=== PATIENT | female | born 1965 | race Caucasian/White ===

== ENCOUNTER 2017-09-17 18:13 | Emergency (ER) | payer OTHER ==
[2017-09-17] MEDS ORDERED: ACETAMINOPHEN 325 MG TABLET (FP) PO ONE (18:25)
[2017-09-17 18:26] VITALS: BP 154/90; PULSE 126; TEMP 101.6; BMI 30.2
[2017-09-17] MEDS ORDERED: predniSONE 20 MG TABLET (UD) PO ONE (18:26)
--- NOTE | 2017-09-17 18:27 | PDOC ---
Rapid Medical Evaluation Time Seen by Provider: 09/17/17 18:21 Medical Evaluation: I have performed a brief in-person evaluation of this patient. The patient presents with a chief complaint of: chest congestion, cough, body aches, SOB since yesterday Pertinent physical exam findings: non toxic but ill appearing, febrile, diffuse expiratory wheezing across all jacobs. Patient had the flu shot this year I have ordered the following: labs, duoneb, prednisone, tylenol, CXR, EKG The patient will proceed to the ED for further evaluation.
[2017-09-17] MEDS: ALBUTEROL SO4 2.5/IPRATROPIUM 0.5 INH SOL 3 ML VIAL.NEB. NEB SCH ×4 (18:30→19:15)
[2017-09-17] MEDS ORDERED: predniSONE 20 MG TABLET (UD) ONE (18:40)
[2017-09-17] MEDS ORDERED: ACETAMINOPHEN 325 MG TABLET (FP) ONE (18:40)
[2017-09-17] MEDS ORDERED: ALBUTEROL SO4 2.5/IPRATROPIUM 0.5 INH SOL 3 ML VIAL.NEB. NEB ONE (18:40)
[2017-09-17 18:58] LABS: BASO % 0.6 % (0-2.0); EOS % 1.2 % (0-4.5); HEMATOCRIT 40.7 % (32.4-45.2); HEMOGLOBIN 13.2 GM/dL (10.7-15.3); LYMPH % 14.9 % (8-40); MCH 27.1 pg (25.7-33.7); MCHC 32.5 g/dl (32.0-36.0); MEAN CELL VOLUME 83.5 fl (80-96); MEAN PLT VOLUME 7.9 fl (7.5-11.1); NEUT % 73.3 % (42.8-82.8); PLATELET COUNT 266 K/MM3 (134-434); RBC 4.87 M/mm3 (3.60-5.2); RDW 14.3 % (11.6-15.6); WHITE BLOOD COUNT 6.5 K/mm3 (4.0-10.0)
[2017-09-17 19:30] LABS: ANION GAP 8 (8-16); BILIRUBIN,TOTAL 0.4 mg/dL (0.2-1.0); BLOOD UREA NITROGEN 9 mg/dL (7-18); CALCIUM 8.6 mg/dL (8.5-10.1); CHLORIDE 104 mmol/L (98-107); CO2 27 mmol/L (21-32); CREATININE 0.6 mg/dL (0.55-1.02); GLUCOSE,RANDOM 117 mg/dL (74-106); SGPT/ALT 30 U/L (12-78); SODIUM 139 mmol/L (136-145); TOT PROT 7.8 g/dl (6.4-8.2)
[2017-09-17 19:33] LABS: ALK PHOS 119 U/L (45-117)
[2017-09-17 19:36] LABS: POTASSIUM 4.4 mmol/L (3.5-5.1); SGOT/AST 16 U/L (15-37)
--- NOTE | 2017-09-17 19:46 | PDOC ---
History of Present Illness - General History Source: Patient Exam Limitations: No Limitations - History of Present Illness Initial Comments: 09/17/17 20:54 The patient is a 52 year old female with a significant PMH of diabetes, asthma, and hyperlipidemia who presents to the emergency department with shortness of breath and chest tightness beginning approximately yesterday. The patient also notes she has had poor PO intake today and feels a sharp pain in her ears bilaterally. The patients temp. was T. max 101.6F at triage. The patient also notes she just recently took a 13 hour bus trip from [place] over the past 2 days but denies leg swelling. The patient denies headache and dizziness. Denies chills, nausea, vomit, diarrhea and constipation. Denies dysuria, frequency, urgency and hematuria. Allergies: Methylprednisolone Past surgical history: None reported. Social history: Current everyday smoker (3 cigs/day). No reported alcohol or drug use. PCP: Dr. Gracie Stephen <Man Chavez - Last Filed: 09/17/17 22:57> <Michelle Mena - Last Filed: 09/18/17 03:52> - General Chief Complaint: Shortness of Breath Stated Complaint: CHEST PAIN Time Seen by Provider: 09/17/17 18:21 Past History <Man Chavez - Last Filed: 09/17/17 22:57> - Suicide/Smoking/Psychosocial Hx Smoking History: Current every day smoker Have you smoked in the past 12 months: Yes Number of Cigarettes Smoked Daily: 3 Information on smoking cessation initiated: No <Michelle Mena - Last Filed: 09/18/17 03:52> - Past Medical History Allergies/Adverse Reactions: Allergies Allergy/AdvReac Type Severity Reaction Status Date / Time methylprednisolone Allergy Swelling Verified 09/17/17 18:22 [From Solu-Medrol] Home Medications: Ambulatory Orders Metformin HCl [Glucophage] 1,000 mg PO BID 09/17/17 Oseltamivir Phosphate [Tamiflu -] 75 mg PO BID #10 capsule 09/17/17 Review of Systems - Review of Systems Able to Perform ROS?: Yes Comments:: 09/17/17 20:54 GENERAL/CONSTITUTIONAL: (+) Decreased appetite. (+) Fever. No chills. No weakness. HEAD, EYES, EARS, NOSE AND THROAT: (+) Bilateral sharp ear pain. No change in vision. No sore throat. CARDIOVASCULAR: (+) Shortness of breath. (+) Chest tightness. RESPIRATORY: No cough, wheezing, or hemoptysis. GASTROINTESTINAL: No nausea, vomiting, diarrhea or constipation. GENITOURINARY: No dysuria, frequency, or change in urination. MUSCULOSKELETAL: No joint or muscle swelling or pain. No neck or back pain. SKIN: No rash NEUROLOGIC: No headache, vertigo, loss of consciousness, or change in strength/ sensation. ENDOCRINE: No increased thirst. No abnormal weight change. HEMATOLOGIC/LYMPHATIC: No anemia, easy bleeding, or history of blood clots. ALLERGIC/IMMUNOLOGIC: No hives or skin allergy. <Man Chavez - Last Filed: 09/17/17 22:57> *Physical Exam - Vital Signs Last Vital Signs Temp Pulse Resp BP Pulse Ox 101.6 F H 126 H 21 154/90 95 09/17/17 18:22 09/17/17 18:22 09/17/17 18:22 09/17/17 18:22 09/17/17 18:22 - Physical Exam Comments: 09/17/17 20:55 GENERAL: Awake, alert, and fully oriented, in no acute distress HEAD: No signs of trauma EYES: PERRLA, EOMI, sclera anicteric, conjunctiva clear ENT: Auricles normal inspection, hearing grossly normal, nares patent, oropharynx clear without exudates. Moist mucosa NECK: Normal ROM, supple, no lymphadenopathy, JVD, or masses LUNGS: (+) Wheezing in left base. No crackles. HEART: Regular rate and rhythm, normal S1 and S2, no murmurs, rubs or gallops ABDOMEN: Soft, nontender, normoactive bowel sounds. No guarding, no rebound. No masses EXTREMITIES: Normal range of motion, no edema. No clubbing or cyanosis. No cords, erythema, or tenderness NEUROLOGICAL: Cranial nerves II through XII grossly intact. Normal speech, normal gait SKIN: Warm, Dry, normal turgor, no rashes or lesions noted. <Man Chavez - Last Filed: 09/17/17 22:57> - Vital Signs Last Vital Signs Temp Pulse Resp BP Pulse Ox 101.6 F H 126 H 21 154/90 95 09/17/17 18:22 09/17/17 18:22 09/17/17 18:22 09/17/17 18:22 09/17/17 18:22 <Michelle Mena - Last Filed: 09/18/17 03:52> ED Treatment Course - LABORATORY CBC & Chemistry Diagram: 09/17/17 18:38 09/17/17 18:38 - ADDITIONAL ORDERS Additional order review: Laboratory Results 09/17/17 18:38 Sodium 139 Potassium 4.4 Chloride 104 Carbon Dioxide 27 Anion Gap 8 BUN 9 Creatinine 0.6 Creat Clearance w eGFR > 60 Random Glucose 117 H Calcium 8.6 Total Bilirubin 0.4 AST 16 ALT 30 Alkaline Phosphatase 119 H Creatine Kinase 106 Troponin I < 0.02 Total Protein 7.8 Albumin 4.0 09/17/17 18:38 RBC 4.87 MCV 83.5 MCHC 32.5 RDW 14.3 MPV 7.9 Neutrophils % 73.3 Lymphocytes % 14.9 Monocytes % 10.0 Eosinophils % 1.2 Basophils % 0.6 - Medications Given in the ED: ED Medications Discontinued Medications Generic Name Dose Route Start Last Admin Trade Name Freq PRN Reason Stop Dose Admin Acetaminophen 975 mg 09/17/17 18:25 09/17/17 18:57 Tylenol - PO 09/17/17 18:26 975 mg ONCE ONE Administration Albuterol/Ipratropium 1 amp 09/17/17 18:30 09/17/17 19:00 Duoneb - NEB 09/17/17 19:16 1 amp Q15M MARIA M Administration Prednisone 60 mg 09/17/17 18:26 09/17/17 18:57 Deltasone - PO 09/17/17 18:27 60 mg ONCE ONE Administration <Man Chavez - Last Filed: 09/17/17 22:57> - LABORATORY CBC & Chemistry Diagram: 09/17/17 18:38 09/17/17 18:38 - ADDITIONAL ORDERS Additional order review: Laboratory Results 09/17/17 18:38 Sodium 139 Potassium 4.4 Chloride 104 Carbon Dioxide 27 Anion Gap 8 BUN 9 Creatinine 0.6 Creat Clearance w eGFR > 60 Random Glucose 117 H Calcium 8.6 Total Bilirubin 0.4 AST 16 ALT 30 Alkaline Phosphatase 119 H Creatine Kinase 106 Troponin I < 0.02 Total Protein 7.8 Albumin 4.0 09/17/17 18:38 RBC 4.87 MCV 83.5 MCHC 32.5 RDW 14.3 MPV 7.9 Neutrophils % 73.3 Lymphocytes % 14.9 Monocytes % 10.0 Eosinophils % 1.2 Basophils % 0.6 - Medications Given in the ED: ED Medications Discontinued Medications Generic Name Dose Route Start Last Admin Trade Name Alexandro PRN Reason Stop Dose Admin Acetaminophen 975 mg 09/17/17 18:25 09/17/17 18:57 Tylenol - PO 09/17/17 18:26 975 mg ONCE ONE Administration Albuterol/Ipratropium 1 amp 09/17/17 18:30 09/17/17 19:00 Duoneb - NEB 09/17/17 19:16 1 amp Q15M MARIA M Administration Prednisone 60 mg 09/17/17 18:26 09/17/17 18:57 Deltasone - PO 09/17/17 18:27 60 mg ONCE ONE Administration <Michelle Mena - Last Filed: 09/18/17 03:52> Medical Decision Making - Medical Decision Making 09/17/17 20:16 Pt comes with fever and cough and unable to eat all day because she was feeling ill. In the ER she ate a bag of peanuts and she is now eating a dinner tray of food. 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 Pt fears that she picked something up in the hospital while she was visiting. Pt has no other complaints. SHe has a hx of asthma and DM and high cholesterol. Labs are normal. Pt is burning with fever she just got some oral tylenol that was ordered upon entering ER. CXR pending. I will treat with IV toradol for aches and with normal saline as she is tachycardic and dehydrated. 09/17/17 23:37 Patient Name: DAMION DE LA CRUZ THIS IS A PRELIMINARY REPORT FROM [facility] IMAGES: 3 EXAM DATE AND TIME: 2017-09-17 21:44:25 EXAM: XR Chest, 2 Views CLINICAL HISTORY: Rule out pneumonia. TECHNIQUE: Frontal and lateral views of the chest. COMPARISON: No relevant prior studies available. FINDINGS: LUNGS: The lungs demonstrate NO consolidations. PLEURAL SPACE: No pneumothorax. HEART: NO acute changes are demonstrated. No cardiomegaly. MEDIASTINUM: NO acute changes are demonstrated. BONES/JOINTS: There is NO evidence of acute bony changes. IMPRESSION: There is NO evidence of acute abnormalities. CPT: [address] . Chest x-ray, 2 view study , frontal and lateral. THIS DOCUMENT HAS BEEN ELECTRONICALLY SIGNED 09/18/17 03:49 Pt's pulsox in the ER is 95-96%. She is ambulating about the ER and she has no SOB She states that she wants to go home. SHe will be treated with tamflu for influenza; we cannot check for the rapid flu test as we have no reagent to conduct the test. However, clinically pt has flu so she will be empirically treated. Incidentally, pt tells me that she drove to [facility] 2 day ago and returned today. She was on a bus for over 10 hrs down and over 10 hrs up. She has no calf swelling and she has no sign of DVT/PE; pt has been advised of PE however and she knows to return of she feels worse. <Michelle Mena - Last Filed: 09/18/17 03:52> *DC/Admit/Observation/Transfer - Attestations Scribe Attestion: 09/17/17 20:55 Documentation prepared by Man Chavez, acting as medical sonographer for Michelle Mena MD. <Man Chavez - Last Filed: 09/17/17 22:57> - Discharge Dispostion Admit: No <Michelle Mena - Last Filed: 09/18/17 03:52> Diagnosis at time of Disposition: Influenza - Discharge Dispostion Disposition: HOME Condition at time of disposition: Improved - Prescriptions Prescriptions: Oseltamivir Phosphate [Tamiflu -] 75 mg PO BID #10 capsule - Referrals Referrals: Gracie Stephen [Primary Care Provider] - - Patient Instructions Printed Discharge Instructions: Influenza - Post Discharge Activity Forms/Work/School Notes: Back to Work
[2017-09-17] MEDS ORDERED: KETOROLAC TROMETHAMINE 30 MG/1 ML VIAL IVPUSH ONE (20:11)
[2017-09-17] MEDS ORDERED: SODIUM CHLORIDE 0.9% 500 ML INFUS.BAG IV ONE (20:15)
[2017-09-17] MEDS ORDERED: KETOROLAC TROMETHAMINE 30 MG/1 ML VIAL ONE (20:21)
[2017-09-17] MEDS ORDERED: OSELTAMIVIR PHOSPHATE 75 MG CAPSULE ONE (20:21)
[2017-09-17] MEDS ORDERED: OSELTAMIVIR PHOSPHATE 75 MG CAPSULE PO ONE (20:30)
--- NOTE | 2017-09-19 11:10 | EKG ---
Test Reason : Blood Pressure : / mmHG Vent. Rate : 114 BPM Atrial Rate : 114 BPM P-R Int : 142 ms QRS Dur : 080 ms QT Int : 306 ms P-R-T Axes : 072 061 039 degrees QTc Int : 421 ms SINUS TACHYCARDIA POSSIBLE LEFT ATRIAL ENLARGEMENT BORDERLINE ECG NO PREVIOUS ECGS AVAILABLE Confirmed by NAHUM RALPH MD ([id number]) on 09/19/2017 11:09:47 AM Referred By: Confirmed By:NAHUM RALPH MD
== END 2017-09-17 23:41 | disposition home or self-care (01) ==
LOC: JER 18:13
PROC: 3E033NZ Introduction of Analgesics, Hypnotics, Sedatives into Peripheral Vein, Percutaneous Approach (ICD-10-PCS; principal; 2017-09-17)
PROC: 3E0F7GC Introduction of Other Therapeutic Substance into Respiratory Tract, Via Natural or Artificial Opening (ICD-10-PCS; 2017-09-17)
DX: J11.1 Influenza due to unidentified influenza virus with other respiratory manifestations (principal)
CPT/HCPCS: 36415; 71046-TC-FY; 80053; 82550; 84484; 85025; 87040; 93005; 93010; 94640; 96374; 99283-25

== ENCOUNTER 2017-09-28 11:09 | Emergency (ER) | payer OTHER ==
[2017-09-28 11:14] VITALS: BP 124/73; PULSE 87; TEMP 97.7; BMI 30.2
[2017-09-28] MEDS ORDERED: ALBUTEROL SO4 2.5/IPRATROPIUM 0.5 INH SOL 3 ML VIAL.NEB. NEB ONE ×2 (12:13→12:28)
[2017-09-28] MEDS ORDERED: IBUPROFEN 400 MG TABLET (FP) PO ONE ×2 (12:13→12:27)
--- NOTE | 2017-09-28 12:13 | PDOC ---
History of Present Illness - General Chief Complaint: Cold Symptoms Stated Complaint: REVISIT Time Seen by Provider: 09/28/17 11:42 Past History - Past Medical History Allergies/Adverse Reactions: Allergies Allergy/AdvReac Type Severity Reaction Status Date / Time methylprednisolone Allergy Swelling Verified 09/28/17 11:10 [From Solu-Medrol] Home Medications: Ambulatory Orders Metformin HCl [Glucophage] 1,000 mg PO BID 09/17/17 Oseltamivir Phosphate [Tamiflu -] 75 mg PO BID #10 capsule 09/17/17 Guaifenesin AC [Robitussin AC] 10 ml PO HS #100 ud MDD 1 09/28/17 predniSONE [Deltasone -] 40 mg PO DAILY #10 tablet 09/28/17 Asthma: Yes COPD: No Diabetes: Yes Hypercholesterolemia: Yes - Suicide/Smoking/Psychosocial Hx Smoking History: Current every day smoker Have you smoked in the past 12 months: Yes Number of Cigarettes Smoked Daily: 5 Information on smoking cessation initiated: Yes 'Breaking Loose' booklet given: 09/28/17 Hx Alcohol Use: No Drug/Substance Use Hx: No Substance Use Type: None *Physical Exam - Vital Signs Last Vital Signs Temp Pulse Resp BP Pulse Ox 97.7 F 87 18 124/73 95 09/28/17 11:11 09/28/17 11:11 09/28/17 11:11 09/28/17 11:11 09/28/17 11:11 *DC/Admit/Observation/Transfer Diagnosis at time of Disposition: Cough - Discharge Dispostion Disposition: HOME Condition at time of disposition: Stable Admit: No - Referrals Referrals: Gracie Stephen [Nurse Practitioner] - - Patient Instructions Printed Discharge Instructions: DI for Cough -- Adult Additional Instructions: Her cough is most likely a result of the flu you have past week. Your chest x- ray was negative for pneumonia. Please take the prednisone daily for the next 5 days. Take your albuterol inhaler every 4 hours. You were also prescribed Robitussin before meals. Please take this medication at night for the cough. Do not drive after taking this medication as it may make you sleepy. Please follow up with your primary care provider this week. Return to the emergency department if you have worsening cough, fevers, difficulty breathing, lightheadedness, or any changes in your symptoms. - Post Discharge Activity Forms/Work/School Notes: Back to Work
[2017-09-28] MEDS ORDERED: guaiFENesin 200 MG/10 ML 10 ML UNIT-DOSE CUPS PO ONE (12:50)
[2017-09-28] MEDS ORDERED: guaiFENesin 200 MG/10 ML 10 ML UNIT-DOSE CUPS ONE (12:57)
== END 2017-09-28 13:21 | disposition home or self-care (01) ==
LOC: JERFT 11:09
PROC: 3E0F7GC Introduction of Other Therapeutic Substance into Respiratory Tract, Via Natural or Artificial Opening (ICD-10-PCS; principal; 2017-09-28)
DX: R05 Cough (principal); E11.9 Type 2 diabetes mellitus without complications; Z79.84 Long term (current) use of oral hypoglycemic drugs; J45.909 Unspecified asthma, uncomplicated; E78.00 Pure hypercholesterolemia, unspecified; F17.210 Nicotine dependence, cigarettes, uncomplicated
CPT/HCPCS: 71046-TC-FY; 94640; 99281-25